=== PATIENT | female | born 2000 | race Caucasian/White ===

== ENCOUNTER 2020-10-12 13:51 | Outpatient (CLI) | payer OTHER ==
--- NOTE | 2020-10-12 15:00 | RAD ---
LEFT FOOT 3 VIEWS: HISTORY: Left foot pain. Left foot fracture 5 weeks ago. FINDINGS: No previous exams for comparison. There is a comminuted fracture involving the base of the 5th metatarsal with fracture line extending into the articular surface. No significant healing is seen. No significant healing or displacement is seen. POS: OFF
== END 2020-10-12 13:52 | disposition home or self-care (01) ==
LOC: SCSRAD 13:51
DX: M79.672 Pain in left foot (principal)

== ENCOUNTER 2020-10-27 15:53 | Outpatient (CLI) | payer OTHER | END 2020-10-27 15:54 | disposition home or self-care (01) | LOC: SCSRAD 15:53 | PROVIDERS: ATTEND Orthopaedic Surgery | DX: M79.672 Pain in left foot (principal); S92.352A Displaced fracture of fifth metatarsal bone, left foot, initial encounter for closed fracture ==

== ENCOUNTER 2020-11-23 14:17 | Outpatient (CLI) | payer OTHER | END 2020-11-23 14:18 | disposition home or self-care (01) | LOC: SCSRAD 14:17 | PROVIDERS: ATTEND Orthopaedic Surgery | DX: M79.672 Pain in left foot (principal); S92.352A Displaced fracture of fifth metatarsal bone, left foot, initial encounter for closed fracture ==